=== PATIENT | male | born 1975 | race Caucasian/White ===

== ENCOUNTER 2021-07-15 14:33 | Emergency (ER) | payer OTHER ==
[2021-07-15 14:58] VITALS: BP 154/93; PULSE 93; TEMP 98; BMI 24.2
== END 2021-07-15 15:55 | disposition home or self-care (01) ==
LOC: FER 14:33
DX: S60.940A Unspecified superficial injury of right index finger, initial encounter (principal)
CPT/HCPCS: 73140-TC-RT-FY; 99284-25